=== PATIENT | female | born 1990 | race Caucasian/White ===

== ENCOUNTER 2017-04-04 16:46 | Emergency (ER) | payer BC, OTHER ==
[~2017-04-04] VITALS: Ht 152.4 cm; Wt 70.0 kg
[2017-04-04 16:54] VITALS: Ht 152.4 cm; Wt 70.0 kg
--- NOTE | 2017-04-04 19:24 | ERD ---
ER Documentation Chief Complaint Date/Time DATE: 04/04/17 TIME: 19:22 Chief Complaint ap HPI This 26-year-old female presents to emergency department with complaint of LLQ ABD pain, pain described as a stabbing, long cramp, LMP started on 03/28/17 and ended 04/02/17, , denies dysuria, hematuria, fever or chill ROS All systems reviewed and are negative except as per history of present illness. Allergies Allergies: Coded Allergies: No Known Allergy (Unverified , 04/04/17) PMhx/Soc Medical and Surgical Hx: pt denies Medical Hx, pt denies Surgical Hx History of Surgery: No Anesthesia Reaction: No Hx Neurological Disorder: No Hx Respiratory Disorders: No Hx Cardiac Disorders: No Hx Psychiatric Problems: No Hx Miscellaneous Medical Probl: No Hx Alcohol Use: Yes (social) Hx Substance Use: No Hx Tobacco Use: No Smoking Status: Never smoker Physical Exam Vitals Vital Signs Date Time Temp Pulse Resp B/P Pulse Ox O2 Delivery O2 Flow Rate FiO2 04/04/17 16:54 98.1 97 18 137/85 99 Physical Exam Const: Well-nourished well-hydrated well-appearing 26-year-old female in no acute distress Head: Eyes: ENT: Normal External Ears, Nose and Mouth. Mucous membranes moist Neck: Resp: Durations even and unlabored, clear to auscultation bilaterally, no respiratory distress Cardio: Regular rate and rhythm, no murmurs Abd: Abdomen symmetric, soft, left low abdominal and pelvic tenderness, no CVA tenderness, no epigastric tenderness Skin: Back: No midline or flank tenderness Ext: Neur: Awake and alert Psych: Normal Mood and Affect Result Diagram: 04/04/17215604/04/172156 Results 24 hrs Laboratory Tests Test 04/04/17 19:37 04/04/17 21:57 Urine Color YELLOW Urine Clarity SLIGHTLY CLOUDY Urine pH 5.0 Urine Specific [place] 1.020 Urine Ketones 2+mg/dL Urine Nitrite NEGATIVEmg/dL Urine Bilirubin NEGATIVEmg/dL Urine Urobilinogen NEGATIVEmg/dL Urine Leukocyte Esterase TRACELeu/ul Urine Microscopic RBC 1/HPF Urine Microscopic WBC 5/HPF Urine Squamous Epithelial Cells FEW/HPF Urine Hemoglobin 2+mg/dL Urine Glucose NEGATIVEmg/dL Urine Total Protein NEGATIVEmg/dl White Blood Count 9.610^3/ul Red Blood Count 4.8310^6/ul Hemoglobin 13.3g/dl Hematocrit 42.3% Mean Corpuscular Volume 87.6fl Mean Corpuscular Hemoglobin 27.5pg Mean Corpuscular Hemoglobin Concent 31.4g/dl Red Cell Distribution Width 12.2% Platelet Count 23858^3/UL Mean Platelet Volume 9.9fl Neutrophils % 77.6% Lymphocytes % 18.2% Monocytes % 3.5% Eosinophils % 0.1% Basophils % 0.3% Nucleated Red Blood Cells % 0.0/100WBC Neutrophils # 7.510^3/ul Lymphocytes # 1.810^3/ul Monocytes # 0.310^3/ul Eosinophils # 0.010^3/ul Basophils # 0.010^3/ul Nucleated Red Blood Cells # 0.010^3/ul Sodium Level 141mmol/L Potassium Level 3.9mmol/L Chloride Level 103mmol/L Carbon Dioxide Level 25mmol/L Anion Gap 17 Blood Urea Nitrogen 9mg/dl Creatinine 0.59mg/dl Glucose Level 96mg/dl Calcium Level 9.4mg/dl Total Bilirubin 0.4mg/dl Direct Bilirubin 0.00mg/dl Indirect Bilirubin 0.4mg/dl Aspartate Amino Transf (AST/SGOT) 23IU/L Alanine Aminotransferase (ALT/SGPT) 34IU/L Alkaline Phosphatase 126IU/L Total Protein 8.2g/dl Albumin 4.4g/dl Globulin 3.80g/dl Albumin/Globulin Ratio 1.15 Current Medications Medications (Trade) Dose Ordered Sig/Felice Route PRN Reason Start Time Stop Time Status Last Admin Dose Admin Ibuprofen 600 mg 600 mg ONCE ONCE PO 04/04/17 19:30 04/04/17 19:31 DC 04/04/17 19:39 Sodium Chloride (NS) 1,000 ml @ 1,000 mls/hr Q1H ONCE IV 04/04/17 22:00 04/04/17 22:59 DC 04/04/17 21:56 IV Flush 10 ml 10 ml STK-MED ONCE .ROUTE 04/04/17 22:32 04/04/17 22:33 DC Sodium Chloride (NS) 100 ml @ ud STK-MED ONCE .ROUTE 04/04/17 22:32 04/04/17 22:33 DC Iohexol (Omnipaque 300mg/ ml) 150 ml STK-MED ONCE .ROUTE 04/04/17 22:33 04/04/17 22:34 DC Interpretation text CBC shows no evidence of hemorrhage or infection Chemistry shows no evidence of significant electrolyte abnormalities or renal insufficiency Urinalysis positive for hematuria, ketones, and trace leukocytes Procedures/MDM PROCEDURE: XR Abdomen. CLINICAL INDICATION: LLQ pain TECHNIQUE: AP abdomen x-ray. COMPARISON: Pelvic ultrasound from the same date FINDINGS: There is a large rounded lesion with partially circumscribed borders identified in the pelvis measuring up to at least 12.1 cm in diameter which appears to be displacing loss loops of small and large bowel superiorly. There is a nonobstructive bowel gas pattern. Stool is noted in the ascending colon. Visualized osseous structures are unremarkable. IMPRESSION: Large lesion measuring up to 12.1 cm displacing bowel loops superiorly. This lesion was also noted on the ultrasound study from the same date. Please see the report for that study for additional findings. A contrast-enhanced CT or MR study is recommended for further evaluation. These findings were discussed with Myriam Hudson over the phone on 2016 at 9:00 PM . Electronically viewed and signed by Physician Brian on 04/04/2017 21:00 PROCEDURE: US Pelvis CLINICAL INDICATION: LLQ pain TECHNIQUE: Multiple sonographic images of the pelvis were obtained utilizing a transabdominal and endovaginal technique. The images were reviewed on a PACS workstation. COMPARISON: None. LMP: 03/28/2017 FINDINGS: The uterus measures 6.5 x 3.7 x 5.0 cm. The endometrial echo complex measures 6 mm in thickness. No discrete lesion is seen. The right ovary is not visualized. The left ovary measures 2.3 x 1.6 x 1.7 cm. There is normal vascular flow in the left ovary. There is a round complex at least partially cystic layering debris and a mural nodule as well as posterior acoustic enhancement located anterior and superior to the uterus measuring 10.6 x 7.9 x 10.0 cm. It is not associated with vascular flow. No significant pelvic free fluid is identified. IMPRESSION: 10.6 cm lesion which appears to be cystic with either a mural nodule or layering debris located anterior and superior to the uterus. This lesion is nonspecific and may be an endometrioma or dermoid cyst/teratoma amongst other etiologies. A contrast-enhanced CT or MR study is recommended for further evaluation. The right ovary is not visualized, suggesting a possible ovarian origin for the lesion described above. Normal vascular flow to the left ovary. Electronically viewed and signed by Physician Brian on 04/04/2017 20:50 PROCEDURE: CT Abdomen and pelvis with contrast. CLINICAL INDICATION: Abdominal pain. TECHNIQUE: CT scan of the abdomen and pelvis with contrast was performed on a multi-detector high-resolution CT scanner. The patient was scanned following the uncomplicated administration of 90 cc of Omnipaque 300 intravenous contrast. Coronal and sagittal reformatted images were obtained from the axial source images. Images were reviewed on a high-resolution PACS workstation. One or more of the following dose reduction techniques were used: - Automated exposure control. - Adjustment of the mA and/or kV according to patient size. - Use of iterative reconstruction technique. Exam CTD/vol = 8.23 mGy. Total exam DLP = 441.14 mGy-cm. COMPARISON: None. FINDINGS: Evaluation of the lung bases demonstrates no pleural or parenchymal disease. Abdomen: The liver is normal in size. There is no focal mass or dilatation of the biliary tree. The gallbladder is not distended. The spleen, pancreas and bilateral adrenal glands are within normal limits. Bilateral kidneys are normal in size with symmetric enhancement. There is no focal mass, hydronephrosis or hydroureter. There is no retroperitoneal adenopathy. The abdominal aorta is of normal caliber. There is no abnormal bowel wall thickening or distension. There is no bowel obstruction or free air. A normal appendix is identified. There is no diverticulosis or diverticulitis. There is no ascites. Pelvis: The bladder is unremarkable. The uterus is unremarkable. There is a large fat-containing there are structure within the anterior limb of the bladder and anterior to the uterus measuring 10 cm AP by 9.5 cm transverse by 10 cm sagittal compatible with a dermoid. There is no significant pelvic adenopathy or free fluid. Evaluation of the osseous structures demonstrates no suspicious lytic or blastic lesion. There are defects of bilateral pars interarticularis of L5. 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 Electronically viewed and signed by .Hansel Gil MD, MD on 04/04/2017 23:39 Pleasant 26-year-old female presents to emergency department for left lower quadrant abdominal pain described as a sharp stabbing long cramp., Patient's last menstrual period ended on 04/02/2017, patient denies any history of dysuria , vaginal discharge or history of endometriosis. 0 para 0. Emergency room course includes history and physical exam, laboratory testing values within normal limits see documentation. Urinalysis positive for trace leukocytes, likely contamination, there is no nitrates or hematuria. Urine will be sent for culture and sensitivity. Abdominal x-ray positive for large lesion measuring 12.1 cm displacing bowel loops superiorly. This lesion was also noted on ultrasound studies from today. CT or MRI study is recommended for further evaluation, preliminary report called to myself from Dr. Bravo pelvic ultrasound impression 10.6 cm lesion which appears to be cystic with either a mural nodule or layering debris located anterior and superior to the uterus. This lesion is nonspecific and may be an endometrioma or dermoid cyst teratoma amongst other etiologies. A contrast-enhanced CT or MRI study is recommended. The right ovary is not visualized suggesting a possible ovarian origin of the lesions described above. Normal vascular flow to left ovary. This case discussed with Dr. Jacques, CT abdomen pelvis with contrast ordered, documenting a large pelvic dermoid, bilateral pars defect of L5. Findings discussed with Dr. Jacques, patient will be discharged home to follow-up with gynecology. Given 3 days off of work, Naprosyn 500 mg 1 tab p.o. twice daily 10 days, and [place] 5/325 for severe pain count of 12. Patient instructed to return to emergency room urgently for severe left sided pain, fever, or dysuria. Patient is stable with no new complaints during ER course, clinically there is no current evidence to suggest malignant adnexal mass, ovarian torsion, bowel obstruction peritonitis or any other emergent condition appearing to require further evaluation or hospitalization. I feel the patient is stable for discharge at this time. I have discussed results, examination findings, the treatment plan with the patient and family present prior to discharge. Indications for emergent reevaluation, side effects of medication were also discussed. All questions were answered. Patient verbalizes understanding and agrees with plan of care. Departure Diagnosis: Primary Impression: Pelvic cyst Condition: Good Referrals: [facility] IN[facility] REFERRAL LIST Additional Instructions: Thank you for for coming to [facility] for your care today. Please ask your nurse or provider if you have questions about your care today and do not leave until all your questions have been answered. Please use any medications given as directed and follow-up with your doctor (or the doctor you were referred to) in the next 2-3 days. If you do not have a primary care doctor you may follow up at the [facility] (listed below). You may also use motrin and tylenol as needed for fever and/or pain unless instructed otherwise by your provider or nurse. Indications for more urgent follow-up have been discussed, but you may return to the Emergency Department at ANY time for any worrisome or worsening symptoms. If you have abdominal pain, please know that no test or exam you received is perfect and you should follow up within 8 hours for continued pain. If you had any imaging studies today, such as an X-Ray or CT Scan, these studies will be reviewed later by a radiologist. You will be called if there are important findings that were not identified today, so make sure the contact information you provided at registration is correct. If you received any narcotic pain control medicine today, such as Vicodin, Morphine or Dilaudid, your coordination and judgment may be affected for a number of hours. Please do not drive or operate heavy machinery, and you may want someone to assist you at home. If you were given a prescription for narcotic medication, be aware that it is very addictive- use sparingly and only if necessary. MYRIAM NEGRETE Apr 04, 2017 19:24
[2017-04-04] MEDS ORDERED: IBUPROFEN 600 MG TAB PO ONE (19:30)
[2017-04-04 20:07] LABS: ADD UMIC YES; UR ASCORBIC ACID NEGATIVE (NEGATIVE); UR BILIRUBIN (Dip) NEGATIVE (NEGATIVE); UR BLOOD (Dip) 2+ mg/dL (NEGATIVE); UR CLARITY SLIGHTLY CLOUDY (CLEAR); UR COLOR YELLOW (YELLOW); UR GLUCOSE (Dip) NEGATIVE (NEGATIVE); UR KETONES (Dip) 2+ mg/dL (NEGATIVE); UR LEUKOCYTE ESTERASE (Dip) TRACE Leu/ul (NEGATIVE); UR NITRITE (Dip) NEGATIVE (NEGATIVE); UR RBC 1 /HPF (0-5); UR SQUAMOUS EPITHELIAL CELL FEW /HPF (FEW); UR TOTAL PROTEIN (Dip) NEGATIVE (NEGATIVE); UR UROBILINOGEN (Dip) NEGATIVE (NEGATIVE)
--- NOTE | 2017-04-04 20:50 | RADRPT ---
PROCEDURE: US Pelvis CLINICAL INDICATION: LLQ pain TECHNIQUE: Multiple sonographic images of the pelvis were obtained utilizing a transabdominal and endovaginal technique. The images were reviewed on a PACS workstation. COMPARISON: None. LMP: 03/28/2017 FINDINGS: The uterus measures 6.5 x 3.7 x 5.0 cm. The endometrial echo complex measures 6 mm in thickness. N o discrete lesion is seen. The right ovary is not visualized. The left ovary measures 2.3 x 1.6 x 1.7 cm. There is normal vascu lar flow in the left ovary. There is a round complex at least partially cystic layering debris and a mural nodule as well as pos terior acoustic enhancement located anterior and superior to the uterus measuring 10.6 x 7.9 x 10.0 cm. It is not associated with vascular flow. No significant pelvic free fluid is identified. IMPRESSION: 10.6 cm lesion which appears to be cystic with either a mural nodule or layering debris located ante rior and superior to the uterus. This lesion is nonspecific and may be an endometrioma or dermoid cy st/teratoma amongst other etiologies. A contrast-enhanced CT or MR study is recommended for further evaluation. The right ovary is not visualized, suggesting a possible ovarian origin for the lesion described abo ve. Normal vascular flow to the left ovary. RPTAT: EE Physician Brian Date Time Electronically viewed and signed by Physician Brian on 04/04/2017 20:50 RA/
--- NOTE | 2017-04-04 21:01 | RADRPT ---
PROCEDURE: XR Abdomen. CLINICAL INDICATION: LLQ pain TECHNIQUE: AP abdomen x-ray. COMPARISON: Pelvic ultrasound from the same date FINDINGS: There is a large rounded lesion with partially circumscribed borders identified in the pelvis measur ing up to at least 12.1 cm in diameter which appears to be displacing loss loops of small and large bowel superiorly. There is a nonobstructive bowel gas pattern. Stool is noted in the ascending colon . Visualized osseous structures are unremarkable. IMPRESSION: Large lesion measuring up to 12.1 cm displacing bowel loops superiorly. This lesion was also noted o n the ultrasound study from the same date. Please see the report for that study for additional findi ngs. A contrast-enhanced CT or MR study is recommended for further evaluation. These findings were discussed with Yesica Hudson over the phone on 04/04/2017 at 9:00 PM . RPTAT: EE Physician Brian Date Time Electronically viewed and signed by Physician Brian on 04/04/2017 21:00 /
[2017-04-04] MEDS ORDERED: SOD CHLORIDE 0.9% 1,000 ML IV ONE (22:00)
[2017-04-04 22:30] LABS: BASOPHILS % 0.3 % (0.0-2.0); EOSINOPHILS % 0.1 % (0.0-7.0); HEMATOCRIT 42.3 % (37.0-47.0); HEMOGLOBIN 13.3 g/dl (12.0-16.0); LYMPHOCYTES # 1.8 10^3/ul (0.8-2.9); LYMPHOCYTES % 18.2 % (15.0-51.0); MEAN CORPUSCULAR HEMOGLOBIN 27.5 pg (29.0-33.0); MEAN CORPUSCULAR HGB CONC 31.4 g/dl (32.0-37.0); MEAN CORPUSCULAR VOLUME 87.6 fl (82.0-101.0); MEAN PLATELET VOLUME 9.9 fl (7.4-10.4); MONOCYTE # 0.3 10^3/ul (0.3-0.9); MONOCYTES % 3.5 % (0.0-11.0); NEUTROPHIL # 7.5 10^3/ul (1.6-7.5); NEUTROPHILS % 77.6 % (39.0-77.0); PLATELET COUNT 391 10^3/UL (140-415); RED BLOOD COUNT 4.83 10^6/ul (4.20-5.40); RED CELL DISTRIBUTION WIDTH 12.2 % (11.5-14.5); WHITE BLOOD COUNT 9.6 10^3/ul (4.8-10.8)
[2017-04-04] MEDS ORDERED: SOD CHLORIDE 0.9% 100 ML ONE (22:32)
[2017-04-04] MEDS ORDERED: IOHEXOL 300MG/ML 150 ML BTL ONE (22:33)
[2017-04-04 22:43] LABS: ALBUMIN 4.4 g/dl (3.3-4.9); ALBUMIN/GLOBULIN RATIO 1.15; BILIRUBIN,INDIRECT 0.4 mg/dl (0-1.1); BILIRUBIN,TOTAL 0.4 mg/dl (0.2-1.3); CALCIUM 9.4 mg/dl (8.4-10.2); CREATININE 0.59 mg/dl (0.44-1.00); POTASSIUM 3.9 mmol/L (3.5-5.1); TOTAL PROTEIN 8.2 g/dl (6.1-8.1)
--- NOTE | 2017-04-04 23:39 | RADRPT ---
PROCEDURE: CT Abdomen and pelvis with contrast. CLINICAL INDICATION: Abdominal pain. TECHNIQUE: CT scan of the abdomen and pelvis with contrast was performed on a multi-detector high -resolution CT scanner. The patient was scanned following the uncomplicated administration of 90 cc of Omnipaque 300 intravenous contrast. Coronal and sagittal reformatted images were obtained from the axial source images. Images were reviewed on a high-resolution PACS workstation. One or more of the following dose reduction techniques were used: - Automated exposure control. - Adjustment of the mA and/or kV according to patient size. - Use of iterative reconstruction technique. Exam CTD/vol = 8.23 mGy. Total exam DLP = 441.14 mGy-cm. COMPARISON: None. FINDINGS: Evaluation of the lung bases demonstrates no pleural or parenchymal disease. Abdomen: The liver is normal in size. There is no focal mass or dilatation of the biliary tree. T he gallbladder is not distended. The spleen, pancreas and bilateral adrenal glands are within fariha l limits. Bilateral kidneys are normal in size with symmetric enhancement. There is no focal mass, hydronephrosis or hydroureter. There is no retroperitoneal adenopathy. The abdominal aorta is of normal caliber. There is no abnormal bowel wall thickening or distension. There is no bowel obstruction or free air . A normal appendix is identified. There is no diverticulosis or diverticulitis. There is no asci jack. Pelvis: The bladder is unremarkable. The uterus is unremarkable. There is a large fat-containing there are structure within the anterior limb of the bladder and anterior to the uterus measuring 10 cm AP by 9.5 cm transverse by 10 cm sagittal compatible with a dermoid. There is no significant pel joss adenopathy or free fluid. Evaluation of the osseous structures demonstrates no suspicious lytic or blastic lesion. There are d efects of bilateral pars interarticularis of L5. 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 .Hansel Gil MD, MD Date Time Electronically viewed and signed by .Hansel Gil MD, MD on 04/04/2017 23:39 .T/
[2017-04-05] MEDS ORDERED: NAPR-260 PO (00:16)
[2017-04-05] MEDS ORDERED: HYDR-906 PO (00:17)
[2017-04-05 01:22] VITALS: BP 118/83; PULSE 94; RESP 16
== END 2017-04-05 01:45 | disposition home or self-care (01) ==
LOC: FTE 16:46
DX: N83.202 Unspecified ovarian cyst, left side (principal)
CPT/HCPCS: 74000; 74177; 76830; 76856; 80053; 81001; 85025; 87086; 99285; J7030; Q9967; Z7610